=== PATIENT | male | born 1980 ===

== ENCOUNTER → 2020-01-20 | Outpatient (CLI) | payer SELFPAY | LOC: ZCOL.LAB 18:44 | DX: Z20.828 Contact with and (suspected) exposure to other viral communicable diseases (principal) ==

== ENCOUNTER 2021-09-17 02:42 | Emergency (ER) | payer SELFPAY ==
[~2021-09-17] VITALS: Ht 172.7 cm; Wt 85.9 kg
[~2021-09-17 02:42] MED LIST: VENTOLIN0.09 MG IH
[2021-09-17 03:35] LABS: BASO % 0.3 % (0.0-2.0); EOS # 0.1 K/mm3 (0.0-0.7); EOS % 0.9 % (0.0-4.0); GRAN # 7.7 K/mm3 (1.4-6.5); GRAN % 77.3 % (42.2-75.2); HEMATOCRIT 40.3 % (42.0-52.0); HEMOGLOBIN 13.8 g/dl (13.5-18.0); LYMPH # 1.4 K/mm3 (1.2-3.4); LYMPH % 13.8 % (20.0-51.0); MEAN CELL VOLUME 84 fl (80.0-100.0); MEAN CORPUSCULAR HEMOGLOBIN 29 pg (27-31); MEAN CORPUSCULAR HGB CONC 34 g/dl (33.0-37.0); MONO # 0.7 K/mm3 (0.1-0.6); MONO % 7.2 % (1.7-9.3); PLATELET COUNT 203 K/mm3 (130-400); RED BLOOD COUNT 4.81 M/mm3 (4.20-5.60); REDCELL DISTRIBUTION WIDTH-CV 12.9 % (11.5-14.5)
[2021-09-17 03:53] LABS: ALBUMIN 2.9 gm/dL (3.5-5.0); BILIRUBIN,TOTAL 0.7 mg/dL (0.2-1.2); CALCIUM 9.3 mg/dL (8.4-10.2); CREATININE, serum 0.94 mg/dL (0.72-1.25); POTASSIUM 3.8 mmol/L (3.5-4.5); TOTAL PROTEIN 7.7 gm/dL (6.2-8.1)
[2021-09-17] MEDS ORDERED: DOXYCYCLINE HY100 MG PO (04:28)
[2021-09-17 04:50] VITALS: BP 119/70; PULSE 78; TEMP 98.6
== END 2021-09-17 04:50 | disposition home or self-care (01) ==
LOC: COL.ER 02:42
PROVIDERS: Emergency Medicine
DX: R05.9 Cough, unspecified (principal)
CPT/HCPCS: J1885

== ENCOUNTER 2023-06-05 08:56 | Emergency (ER) | payer SELFPAY ==
[~2023-06-05] VITALS: Ht 172.7 cm; Wt 80.0 kg
[~2023-06-05 08:56] MED LIST changes: +DOXYCYCLINE HY100 MG PO
[2023-06-05 09:02] VITALS: TEMP 97.6
[2023-06-05] MEDS ORDERED: Albuterol/Ipratropium 3 MG-0.5 MG/3 ML Neb Soln IH ONE (09:30)
[2023-06-05] MEDS ORDERED: Albuterol 0.083% Neb Soln 2.5 MG/3 ML UD IH ONE (11:00)
[2023-06-05] MEDS ORDERED: ZITHROMAX Z PA250 MG PO (11:00)
[2023-06-05] MEDS ORDERED: predniSONE 20 MG TAB PO ONE (11:00)
[2023-06-05] MEDS ORDERED: PREDNISONE20 MG PO (11:00)
[2023-06-05 11:33] VITALS: BP 125/75; PULSE 88
== END 2023-06-05 11:36 | disposition home or self-care (01) ==
LOC: COL.ER 08:56
DX: J45.901 Unspecified asthma with (acute) exacerbation (principal); J21.9 Acute bronchiolitis, unspecified; Z87.891 Personal history of nicotine dependence
CPT/HCPCS: J7512